=== PATIENT | female | born 1965 | race African-American/Black ===

== ENCOUNTER 2018-01-06 14:10 | Inpatient (IN) | payer BC, MEDICARE ==
[2018-01-06] MEDS ORDERED: ONDANSETRON HCL INJ/PF 4 MG/2 ML SDV IV ONE (14:49)
[2018-01-06] MEDS ORDERED: NORMAL SALINE 1000 ML 1,000 ML IV ONE (14:50)
--- NOTE | 2018-01-06 14:51 | ER Document Report ---
ED Medical Screen (RME) - General Chief Complaint: Nausea/Vomiting Stated Complaint: NOSE BLEED/VOMITING Time Seen by Provider: 01/06/18 14:46 Mode of Arrival: Ambulatory Information source: Patient Notes: Patient is a 52-year-old female who presents with chief complaint of weakness, nausea, vomiting and diarrhea for 2-3 days. Patient reports she did have an episode of nosebleeding but that resolved yesterday. Patient denies any fever or abdominal pain. Patient denies any urinary symptoms. Exam: Lung sounds clear to auscultation bilaterally. Tenderness to palpation to right lower quadrant, otherwise abdomen soft nontender. I have greeted and performed a rapid initial assessment of this patient. A comprehensive ED assessment and evaluation of the patient, analysis of test results and completion of the medical decision making process will be conducted by additional ED providers. Dictation of this chart was performed using voice recognition software; therefore, there may be some unintended grammatical errors. TRAVEL OUTSIDE OF THE [place] IN LAST 30 DAYS: No - Related Data Allergies/Adverse Reactions: promethazine [From Phenergan] Allergy (Verified 01/06/18 14:13) Past Medical History Renal/ Medical History: Denies: Hx Peritoneal Dialysis Past Surgical History: Reports: Hx Abdominal Surgery Physical Exam - Vital signs Vitals: Temp Pulse Resp BP Pulse Ox 97.5 F 100 16 129/81 H 100 01/06/18 14:39 01/06/18 14:39 01/06/18 14:39 01/06/18 14:39 01/06/18 14:39 Course - Vital Signs Vital signs: Temp Pulse Resp BP Pulse Ox 97.5 F 100 16 129/81 H 100 01/06/18 14:39 01/06/18 14:39 01/06/18 14:39 01/06/18 14:39 01/06/18 14:39 Doctor's Discharge - Discharge Referrals: CHARLES DOAN MD [Primary Care Provider] - Follow up as needed
[2018-01-06 16:41] LABS: HEMATOCRIT 35.9 % (36.0-47.0); HEMOGLOBIN 11.9 g/dL (12.0-15.5); MEAN CORPUSCULAR HEMOGLOBIN 25.8 pg (27.0-33.4); MEAN CORPUSCULAR HGB CONC 33.2 g/dL (32.0-36.0); MEAN CORPUSCULAR VOLUME 78 fl (80-97); PLATELET COUNT 116 10^3/uL (150-450); RED BLOOD COUNT 4.62 10^6/uL (3.72-5.28); RED CELL DISTRIBUTION WIDTH 16.4 % (11.5-14.0); WHITE BLOOD COUNT 22.8 10^3/uL (4.0-10.5)
[2018-01-06 16:42] LABS: APPEARANCE,URINE CLOUDY; BILIRUBIN,URINE SMALL (NEGATIVE); COLOR,URINE AMBER; GLUCOSE, URINE NEGATIVE (NEGATIVE); KETONES,URINE NEGATIVE (NEGATIVE); LEUKOCYTE ESTERASE,URINE NEGATIVE (NEGATIVE); NITRITE,URINE NEGATIVE (NEGATIVE); PROTEIN,URINE 100 mg/dL (NEGATIVE); URINE SPECIFIC GRAVITY 1.029
[2018-01-06 16:59] LABS: ABSOLUTE LYMPHOCYTES# (MANUAL) 2.5 10^3/uL (0.5-4.7); ABSOLUTE MONOCYTES # (MANUAL) 0.5 10^3/uL (0.1-1.4); ABSOLUTE NEUTROPHILS# (MANUAL) 19.8 10^3/uL (1.7-8.2); BAND NEUTROPHILS % (MANUAL) 5 % (3-5); BASOPHILS % (MANUAL) 0 % (0-2); EOSINOPHILS % (MANUAL) 0 % (0-6); LYMPHOCYTES % (MANUAL) 11 % (13-45); MONOCYTES % (MANUAL) 2 % (3-13); SEGMENTED NEUTROPHILS % (MAN) 82 % (42-78); TOTAL CELLS COUNTED 100
[2018-01-06 17:01] LABS: ANISOCYTOSIS 1+; HYPOCHROMASIA 1+; OVALOCYTES 1+; POIKILOCYTOSIS 2+; TEAR DROP CELLS SLIGHT
[2018-01-06 17:02] LABS: BURR CELLS 1+; PLATELET COMMENT ADEQUATE; TOXIC GRANULATION 1+; TOXIC VACUOLATION PRESENT
[2018-01-06 17:06] LABS: ALANINE AMINOTRANSFERASE 29 U/L (9-52); ALBUMIN 3.7 g/dL (3.5-5.0); ALKALINE PHOSPHATASE 297 U/L (38-126); ANION GAP 16 (5-19); ASPARTATE AMINO TRANSFERASE 36 U/L (14-36); BILIRUBIN,DIRECT 0.9 mg/dL (0.0-0.4); BILIRUBIN,TOTAL 0.9 mg/dL (0.2-1.3); BLOOD UREA NITROGEN 62 mg/dL (7-20); CALCIUM 9.1 mg/dL (8.4-10.2); CARBON DIOXIDE 17 mmol/L (22-30); CHLORIDE 107 mmol/L (98-107); GLUCOSE 90 mg/dL (75-110); LIPASE 1599.4 U/L (23-300); POTASSIUM 3.7 mmol/L (3.6-5.0); SODIUM 139.7 mmol/L (137-145); TOTAL PROTEIN 7.5 g/dL (6.3-8.2)
[2018-01-06] MEDS ORDERED: KETOROLAC TROMETHAMINE INJ/PF 30 MG/1 ML SDV IV ONE (19:54)
[2018-01-06] MEDS ORDERED: RINGERS SOLUTION,LACTATED 1,000 ML IV ONE (19:54)
--- NOTE | 2018-01-06 20:14 | ER Document Report ---
ED General - General Chief Complaint: Nausea/Vomiting Stated Complaint: NOSE BLEED/VOMITING Time Seen by Provider: 01/06/18 14:46 Mode of Arrival: Ambulatory Notes: Patient is a 52-year-old female with past medical history of hypertension, prior appendectomy, prior cholecystectomy who presents with 36 hours of upper abdominal pain, nausea and vomiting. She has not been able to tolerate oral intake secondary to her degree of nausea and vomiting. She denies a history of similar symptoms in the past. Nothing seemed to improve or worsen her symptoms. She does describe her upper abdominal pain as a dull, throbbing, constant pain. She has not had any diarrhea. No fever or constitutional symptoms. She denies alcohol use. No known sick contacts. TRAVEL OUTSIDE OF THE [place] IN LAST 30 DAYS: No - Related Data Allergies/Adverse Reactions: promethazine [From Phenergan] Allergy (Verified 01/06/18 14:13) Past Medical History - General Information source: Patient - Social History Smoking Status: Current Every Day Smoker Frequency of alcohol use: None Drug Abuse: None Lives with: Family Family History: Reviewed & Not Pertinent Patient has suicidal ideation: No Patient has homicidal ideation: No Renal/ Medical History: Denies: Hx Peritoneal Dialysis Past Surgical History: Reports: Hx Abdominal Surgery Review of Systems - Review of Systems Notes: Constitutional: Negative for fever. HENT: Negative for sore throat. Eyes: Negative for visual changes. Cardiovascular: Negative for chest pain. Respiratory: Negative for shortness of breath. Gastrointestinal: Positive for abdominal pain and vomiting Genitourinary: Negative for dysuria. Musculoskeletal: Negative for back pain. Skin: Negative for rash. Neurological: Negative for headaches, weakness or numbness. 10 point ROS negative except as marked above and in HPI. Physical Exam - Vital signs Vitals: Temp Pulse Resp BP Pulse Ox 97.5 F 100 16 129/81 H 100 01/06/18 14:39 01/06/18 14:39 01/06/18 14:39 01/06/18 14:39 01/06/18 14:39 Interpretation: Tachycardic Notes: PHYSICAL EXAMINATION: GENERAL: Appears moderately uncomfortable but in no acute distress HEAD: Atraumatic, normocephalic. EYES: Pupils equal round and reactive to light, extraocular movements intact, sclera anicteric, conjunctiva are normal. ENT: nares patent, oropharynx clear without exudates. Moderately dry mucous membranes. NECK: Normal range of motion, supple without lymphadenopathy LUNGS: Breath sounds clear to auscultation bilaterally and equal. No wheezes rales or rhonchi. HEART: Regular rate and rhythm without murmurs ABDOMEN: Soft, mild epigastric and right quadrant abdominal pain but no other localized areas of tenderness, normoactive bowel sounds. No guarding, no rebound. No masses appreciated. EXTREMITIES: Normal range of motion, no pitting or edema. No cyanosis. NEUROLOGICAL: No focal neurological deficits. Moves all extremities spontaneously and on command. PSYCH: Normal mood, normal affect. SKIN: Warm, Dry, normal turgor, no rashes or lesions noted. Course - Re-evaluation Re-evalutation: 01/06/18 20:13 Patient presents with nausea, vomiting, upper abdominal pain hours. She has some mild tenderness to her right upper quadrant and epigastrium on palpation. Laboratories are notable for a leukocytosis, elevated lipase, and acute kidney injury. This is consistent with an acute pancreatitis with associated prerenal azotemia from nausea and vomiting and difficulty tolerating oral intake. Will proceed with a right upper quadrant ultrasound to verify that this is not a gallstone induced pancreatitis. Patient has been started on IV fluids, pain control, antiemetics. She will require admission given her laboratory derangements 01/06/18 23:20 Right quadrant ultrasound actually shows that the patient has had a cholecystectomy although she denied this to me. It appears that she had choledocholithiasis and subsequently has had an ERCP with a common bile duct stent placement. Patient has not had any additional vomiting. I discussed with the hospitalist Dr. Myles for admission and she has accepted - Vital Signs Vital signs: Temp Pulse Resp BP Pulse Ox 98.5 F 72 24 H 121/76 99 01/06/18 23:28 01/06/18 23:28 01/07/18 02:00 01/06/18 23:28 01/07/18 02:00 - Laboratory Result Diagrams: 01/06/18 16:18 01/06/18 16:18 Laboratory results interpreted by me: 01/06/18 01/06/18 01/06/18 16:18 16:18 16:18 WBC 22.8 H Hgb 11.9 L Hct 35.9 L MCV 78 L MCH 25.8 L RDW 16.4 H Plt Count 116 L Seg Neuts % (Manual) 82 H Lymphocytes % (Manual) 11 L Monocytes % (Manual) 2 L Abs Neuts (Manual) 19.8 H Carbon Dioxide 17 L BUN 62 H Creatinine 1.68 H Est GFR ( Amer) 39 L Est GFR (Non-Af Amer) 32 L Direct Bilirubin 0.9 H Alkaline Phosphatase 297 H Lipase 1599.4 H Urine Protein 100 H Urine Blood MODERATE H Urine Bilirubin SMALL H Urine Urobilinogen 2.0 H - Diagnostic Test Radiology reviewed: Reports reviewed Discharge - Discharge Clinical Impression: Prerenal azotemia Acute pancreatitis Qualifiers: Pancreatitis type: unspecified pancreatitis type Acute pancreatitis complication: unspecified Qualified Code(s): K85.90 - Acute pancreatitis without necrosis or infection, unspecified Nausea and vomiting Qualifiers: Vomiting type: unspecified Vomiting Intractability: non-intractable Qualified Code(s): R11.2 - Nausea with vomiting, unspecified Condition: Fair Disposition: ADMITTED INPATIENT Admitting Provider: Hospitalist Unit Admitted: Medical Floor
--- NOTE | 2018-01-06 22:42 | RADIOLOGY REPORT (SQ) ---
EXAM DESCRIPTION: US ABDOMEN LIMITED COMPLETED DATE/TME: 01/06/2018 20:11 CLINICAL HISTORY: 52 years, Female, acute pancreatitis COMPARISON: EXAM DESCRIPTION: CLINICAL HISTORY: acute pancreatitis COMPARISON: None. FINDINGS: Sonography was performed of the right upper quadrant. Pancreatic duct is dilated at 8 mm. There is calcification at of the pancreas which is heterogeneous. Aorta is unremarkable. Flow in the main portal vein is in the expected direction. No sonographic Pina's sign. Bile duct is enlarged at 10 mm. There is a stent in the common duct. Right kidney measures 9.3 cm in length. Gallbladder is not seen. No other acute abnormality. IMPRESSION: Abnormal appearance of the pancreas, which is nonspecific. Inflammatory or neoplastic etiologies are possible. Dilated pancreatic duct. Dilated common duct containing a stent. TECHNIQUE: LIMITATIONS: None. FINDINGS: IMPRESSION: 2010 [employer]- All Rights Reserved
[2018-01-06] MEDS ORDERED: GLUCAGON,HUMAN RECOMB 1 MG INJ SUBCUT PRN (23:49)
[2018-01-06] MEDS ORDERED: DEXTROSE 50%-WATER 25 GM/50 ML DISP.SYRIN IV PRN ×2 (23:49)
[2018-01-06] MEDS ORDERED: PROMETHAZINE HCL INJ 25 MG/1 ML VIAL IV PRN (23:49)
[2018-01-06] MEDS ORDERED: DEXTROSE 40% GEL 15 GM TUBE PO PRN (23:49)
[2018-01-06] MEDS ORDERED: MAG HYDROX/AL HYDROX/SIMETH SUSP 30 ML UDCUP PO PRN (23:49)
[2018-01-06] MEDS ORDERED: OXYCODONE-ACETAMINOPHEN 5-325 MG TABLET PO PRN (23:49)
[2018-01-06] MEDS ORDERED: ACETAMINOPHEN 325 MG TABLET PO PRN (23:49)
[2018-01-07] MEDS ORDERED: MORPHINE SULFATE 10 MG/ML INJ IV PRN (00:01)
[2018-01-07] MEDS ORDERED: IMIPENEM/CILASTATIN SODIUM INJ 500 MG VIAL IV PRN (00:15)
[2018-01-07] MEDS ORDERED: METOCLOPRAMIDE HCL INJ/PF 10 MG/2 ML SDV IV PRN (00:19)
[2018-01-07] MEDS ORDERED: PANTOPRAZOLE SODIUM 40 MG VIAL IV ONE (00:20)
[2018-01-07] MEDS ORDERED: IMIPENEM/CILASTATIN SODIUM 500 MG in NORMAL SALINE 100 ML IV ONE (00:30)
[2018-01-07 00:49] LABS: URINE AMPHETAMINES SCREEN NEGATIVE; URINE BARBITURATES SCREEN NEGATIVE; URINE BENZODIAZEPINES SCREEN NEGATIVE; URINE COCAINE SCREEN NEGATIVE; URINE MARIJUANA (THC) SCREEN NEGATIVE; URINE METHADONE SCREEN NEGATIVE; URINE PHENCYCLIDINE SCREEN NEGATIVE
[2018-01-07 01:14] LABS: CHOLESTEROL 158.33 mg/dL (0-200)
--- NOTE | 2018-01-07 01:19 | RADIOLOGY REPORT (SQ) ---
EXAM DESCRIPTION: CT ABDOMEN PELVIS WITHOUT IV CONTRAST COMPLETED DATE/TME: 01/06/2018 00:00 CLINICAL HISTORY: acute pancreatitis COMPARISON: None Available. TECHNIQUE: CT of the abdomen and pelvis without IV contrast. Evaluation of the solid organs and vasculature is suboptimal due to lack of IV contrast. DLP: 227.93 mGy-cm FINDINGS: Lung Bases: The visualized lung bases are clear. Bones: No destructive bone lesions identified. Abdomen: Liver: Intrabiliary air identified. No other abnormalities of the liver identified. Common bile duct stent visualized. Gallbladder: Gallbladder not definitely identified. Spleen, Pancreas, and Adrenal Glands: The spleen and adrenal glands are unremarkable. Dilation of the pancreatic duct. Minimal peripancreatic inflammatory change. No well-circumscribed peripancreatic fluid collection. Evaluation for pancreatic necrosis is suboptimal due to lack of contrast. Calcifications involving the head of the pancreas. Kidneys: Punctate nonobstructing inferior pole right renal calculus. No hydronephrosis. No obstructing renal calculi. Vasculature: The aorta and IVC have normal caliber and position. Stomach: Postoperative changes in the stomach. Other: No free intraperitoneal air. Small amount of free fluid. Pelvis: Bladder: Urinary bladder is unremarkable. Bowel: No dilated loops of large or small bowel. Appendix: The appendix is not definitely identified. Pelvis: No large adnexal masses. IMPRESSION: 1. Dilation of the main pancreatic duct with pancreatic calcifications. There is minimal peripancreatic inflammatory change. These findings could be seen with acute on chronic pancreatitis. 2. Common bile duct stent with intrabiliary air identified. 3. Gallbladder is identified. 4. Nonobstructing right nephrolithiasis. This exam was performed according to our departmental dose-optimization program, which includes automated exposure control, adjustment of the mA and/or kV according to patient size and/or use of iterative reconstruction technique.
[2018-01-07 01:24] LABS: ALCOHOL < 10 mg/dL (NONE DETECTED); TRIGLYCERIDES 626 mg/dL (<150)
[2018-01-07 01:25] LABS: DIRECT LDL < 30 mg/dL (<100)
[2018-01-07] MEDS: NORMAL SALINE 1000 ML 1,000 ML IV PRN ×2 (02:21→09:43)
--- NOTE | 2018-01-07 04:17 | PDOC H&P ---
History of Present Illness Admission Date/PCP: 01/06/18 23:46 Manolo SRINIVASAN Patient complains of: Nausea and vomiting History of Present Illness: JESSY VAIL is a 52 year old female who comes to the emergency department complaining of persistent nausea and vomiting for 1 day, associated with lower back pain, dull in nature, 7/10 intensity, she denies any abdominal pain, fever , chills, shortness of breath, chest pain, diarrhea, cough, urinary symptoms, wheezing. The patient has been feeling very weak and has decreased her fluid intake and p.o. intake in general. 2 nights ago she had shaking chills. Patient tells me that she has history of ulcer she does not know was a stomach or duodenum but something went wrong with her first surgery and she had a second surgery where she had a partial small bowel resection and I stent had to be placed in her bile duct, she does not know exactly the diagnosis or what happened during surgery. Abnormal laboratories in the emergency department with white blood cells 20 2.8K with left shift, acute renal failure, lipase 1599. Right upper quadrant ultrasound shows dilated pancreatic duct, and no new or old. Past Medical History GI Medical History: Reports: Other - Ulcer, unknown if duodenal or gastric Past Surgical History Past Surgical History: Exploratory laparotomy with apparently partial small bowel resection and bile duct stent in place Past Surgical History: Reports: Other Social History Lives with: Family Smoking Status: Never Smoker Frequency of Alcohol Use: None Hx Recreational Drug Use: No Hx Prescription Drug Abuse: No Past Social History Note: Lives with her parents Family History Family History: Reviewed & Not Pertinent Family History: Mother 71 years old with hypertension, father 71 years old with pacemaker in place and COPD Parental Family History Reviewed: Yes - as Above Children Family History Reviewed: NA Sibling(s) Family History Reviewed.: NA Medication/Allergy Allergies/Adverse Reactions: promethazine [From Phenergan] Allergy (Verified 01/06/18 14:13) Review of Systems Review of Systems: As outlined in the HPI, all others negative Physical Exam Vital Signs: Temp Pulse Resp BP Pulse Ox 98.5 F 72 14 121/76 99 01/06/18 23:28 01/06/18 23:28 01/07/18 03:00 01/06/18 23:28 01/07/18 03:00 Intake & Output 01/05/18 01/06/18 01/07/18 06:59 06:59 06:59 Intake Total 100 Balance 100 Additional comments: General appearance: Well-developed, well-nourished, alert and cooperative, and appears to be in no acute distress Head: Normocephalic Eyes: PEERL, EOMI, vision is grossly intact. Ears: External auditory canal and tympanic membranes clear, hearing grossly intact. Nose: No nasal discharge. Throat: Oral cavity and pharynx normal. No inflammation, swelling, exudate or lesions. Neck: Neck supple, nontender without lymphadenopathy, masses or thyromegaly. Cardiac: Normal S1 and S2. No S3, S4 or murmurs. Rhythm is regular. There is no peripheral edema, cyanosis or pallor. Extremities are warm and well perfused. Capillary refill is less than 2 seconds. No carotid bruits. Lungs: Clear to auscultation and percussion without rales, rhonchi, wheezing or diminished breath sounds. Not using accessory muscles. Abdomen: Positive bowel sounds. Soft. Nondistended, nontender. No guarding or rebound. No masses. No hepatosplenomegaly Extremities: No significant deformity or joint abnormality. No edema. Peripheral pulses intact. No varicosities. Neurological: Cranial nerves II through XII grossly intact. Strength and sensation symmetric and intact throughout. Reflexes 2+ throughout. Skin: Skin normal color, texture and turgor with no lesions or eruptions, warm and dry. Psychiatric: The mental examination revealed the patient was oriented to person , place, and time. The patient was able to demonstrate good judgment on recent , without hallucinations, abnormal affect or abnormal behaviors. Results Laboratory Results: 01/07/18 00:35 Triglycerides 626 H Cholesterol 158.33 LDL Cholesterol Direct < 30 VLDL Cholesterol UNABLE TO CALCULATE HDL Cholesterol 19 L 01/06/18 01/06/18 16:18 16:18 Sodium 139.7 Potassium 3.7 Chloride 107 Carbon Dioxide 17 L Anion Gap 16 BUN 62 H Creatinine 1.68 H Est GFR ( Amer) 39 L Est GFR (Non-Af Amer) 32 L Glucose 90 Calcium 9.1 Total Bilirubin 0.9 Direct Bilirubin 0.9 H AST 36 ALT 29 Alkaline Phosphatase 297 H Total Protein 7.5 Albumin 3.7 Lipase 1599.4 H Urine Color ERIKA Urine Appearance CLOUDY Urine pH 5.0 Ur Specific [place] 1.029 Urine Protein 100 H Urine Glucose (UA) NEGATIVE Urine Ketones NEGATIVE Urine Blood MODERATE H Urine Nitrite NEGATIVE Urine Bilirubin SMALL H Urine Urobilinogen 2.0 H Ur Leukocyte Esterase NEGATIVE Urine WBC (Auto) 4 Urine RBC (Auto) 66 Squamous Epi Cells Auto 2 Urine Mucus (Auto) RARE Urine Ascorbic Acid NEGATIVE Impressions: Abdomen/Pelvis CT 01/06/18 00:00 IMPRESSION: 1. Dilation of the main pancreatic duct with pancreatic calcifications. There is minimal peripancreatic inflammatory change. These findings could be seen with acute on chronic pancreatitis. 2. Common bile duct stent with intrabiliary air identified. 3. Gallbladder is identified. 4. Nonobstructing right nephrolithiasis. This exam was performed according to our departmental dose-optimization program, which includes automated exposure control, adjustment of the mA and/or kV according to patient size and/or use of iterative reconstruction technique. Abdomen Ultrasound 01/06/18 20:11 IMPRESSION: Abnormal appearance of the pancreas, which is nonspecific. Inflammatory or neoplastic etiologies are possible. Dilated pancreatic duct. Dilated common duct containing a stent. TECHNIQUE: LIMITATIONS: None. FINDINGS: IMPRESSION: 2010 [employer]- All Rights Reserved Assessment & Plan - Diagnosis (1) Acute pancreatitis Qualifiers: Pancreatitis type: unspecified pancreatitis type Acute pancreatitis complication: unspecified Qualified Code(s): K85.90 - Acute pancreatitis without necrosis or infection, unspecified Is this a current diagnosis for this admission?: Yes Plan: Lipase 1599. We will keep the patient n.p.o. normal saline running at 1 50 cc/ h. IV antiemetics and pain medication. I am adding to prior labs serum alcohol levels, tightly 70 days. Requesting urinalysis and urine drug screen. Requested CT of the abdomen, unfortunately without contrast as the patient has acute renal failure. Ultrasound failed to show gallbladder. Due to the severe leukocytosis I decided to a started the patient on IV imipenem. Will repeat lipase in the morning. (2) Acute renal failure Qualifiers: Acute renal failure type: unspecified Qualified Code(s): N17.9 - Acute kidney failure, unspecified Is this a current diagnosis for this admission?: Yes Plan: I will assume that the patient has normal renal function, we do not have previous labs. This is likely prerenal secondary to dehydration secondary to poor oral intake and persistent nausea and vomiting. Patient is receiving IV fluids and will reassess renal panel in the morning. Do not feel further workup is warranted. Avoid nephrotoxic drugs. (3) Metabolic acidosis Is this a current diagnosis for this admission?: Yes Plan: Likely multifactorial, will reassess this in the morning (4) Alkaline phosphatase elevation Is this a current diagnosis for this admission?: Yes Plan: Alkaline phosphatase 297, I do not have prior to compare to. We will repeat liver function panel in the morning. Patient has had bile duct stent that could be obstructed, laboratory seems to be worse than what really the patient clinically looked. If not improvement, we will probably have to contact GI in a different facility. - Time Time Spent: 30 to 50 Minutes - Inpatient Certification Based on my medical assessment, after consideration of the patient's comorbidities, presenting symptoms, or acuity I expect that the services needed warrant INPATIENT care.: Yes I certify that my determination is in accordance with my understanding of Medicare's requirements for reasonable and necessary INPATIENT services [42 CFR 412.3e].: Yes Medical Necessity: Risk of Diagnosis Which Will Require Inpatient Eval/Care/ Monitoring
[2018-01-07] MEDS: IMIPENEM/CILASTATIN SODIUM 500 MG in NORMAL SALINE 100 ML IV SCH ×3 (06:12→19:37)
[2018-01-07] MEDS: HEPARIN SOD (PORCINE) 5,000 UNIT/ML 1 ML SYRINGE SUBCUT SCH ×3 (06:14→21:38)
[2018-01-07 06:23] LABS: HEMATOCRIT 35.5 % (36.0-47.0); HEMOGLOBIN 11.7 g/dL (12.0-15.5); MEAN CORPUSCULAR HEMOGLOBIN 25.9 pg (27.0-33.4); MEAN CORPUSCULAR HGB CONC 32.9 g/dL (32.0-36.0); MEAN CORPUSCULAR VOLUME 79 fl (80-97); PLATELET COUNT 122 10^3/uL (150-450); RED BLOOD COUNT 4.51 10^6/uL (3.72-5.28); RED CELL DISTRIBUTION WIDTH 16.4 % (11.5-14.0); WHITE BLOOD COUNT 9.7 10^3/uL (4.0-10.5)
[2018-01-07 06:41] LABS: ABSOLUTE LYMPHOCYTES# (MANUAL) 0.9 10^3/uL (0.5-4.7); ABSOLUTE MONOCYTES # (MANUAL) 0.1 10^3/uL (0.1-1.4); ABSOLUTE NEUTROPHILS# (MANUAL) 8.6 10^3/uL (1.7-8.2); BAND NEUTROPHILS % (MANUAL) 2 % (3-5); BASOPHILS % (MANUAL) 0 % (0-2); EOSINOPHILS % (MANUAL) 1 % (0-6); LYMPHOCYTES % (MANUAL) 9 % (13-45); MONOCYTES % (MANUAL) 1 % (3-13); SEGMENTED NEUTROPHILS % (MAN) 87 % (42-78); TOTAL CELLS COUNTED 100
[2018-01-07 06:42] LABS: ANISOCYTOSIS 1+; BURR CELLS 2+; HELMET CELLS SLIGHT; PLATELET COMMENT ADEQUATE; PLATELET LARGE PRESENT; POIKILOCYTOSIS 2+; SCHISTOCYTES 1+; TARGET CELLS SLIGHT; TOXIC GRANULATION 1+
[2018-01-07 08:03] LABS: ALANINE AMINOTRANSFERASE 23 U/L (9-52); ALBUMIN 2.9 g/dL (3.5-5.0); ALKALINE PHOSPHATASE 202 U/L (38-126); ANION GAP 10 (5-19); ASPARTATE AMINO TRANSFERASE 27 U/L (14-36); BILIRUBIN,DIRECT 0.8 mg/dL (0.0-0.4); BILIRUBIN,TOTAL 0.8 mg/dL (0.2-1.3); BLOOD UREA NITROGEN 51 mg/dL (7-20); CALCIUM 8.6 mg/dL (8.4-10.2); CARBON DIOXIDE 18 mmol/L (22-30); CHLORIDE 113 mmol/L (98-107); GLUCOSE 77 mg/dL (75-110); PHOSPHORUS 3.2 mg/dL (2.5-4.5); POTASSIUM 3.7 mmol/L (3.6-5.0); SODIUM 141.2 mmol/L (137-145); TOTAL PROTEIN 6.3 g/dL (6.3-8.2)
[2018-01-07 08:17] LABS: LIPASE 1995.6 U/L (23-300)
--- NOTE | 2018-01-07 09:23 | PDOC PROGRESS REPORT ---
Subjective Progress Note for:: 01/07/18 Subjective:: Patient is feeling significantly better this morning. Her abdominal limbs are improved. She is not really having abdominal pain. Nausea is improved. No emesis overnight. Slept well. No chest pain or difficulty breathing. No urinary difficulty. She has not had a bowel movement. Reason For Visit: ACUTE PANCREATITIS Physical Exam Vital Signs: Temp Pulse Resp BP Pulse Ox 98.5 F 72 21 H 132/98 H 96 01/06/18 23:28 01/06/18 23:28 01/07/18 07:01 01/07/18 07:01 01/07/18 07:01 Intake & Output 01/06/18 01/07/18 01/08/18 06:59 06:59 06:59 Intake Total 100 100 Balance 100 100 General appearance: PRESENT: no acute distress, cooperative, thin Head exam: PRESENT: atraumatic, normocephalic Eye exam: PRESENT: EOMI. ABSENT: conjunctival injection, scleral icterus Ear exam: ABSENT: bleeding Mouth exam: PRESENT: moist Respiratory exam: PRESENT: clear to auscultation les, unlabored. ABSENT: rales , rhonchi, wheezes Cardiovascular exam: PRESENT: RRR. ABSENT: systolic murmur Pulses: PRESENT: normal radial pulses, normal dorsalis pedis pul GI/Abdominal exam: PRESENT: diminished bowel sounds, soft, tenderness. ABSENT: distended, firm, guarding Rectal exam: PRESENT: deferred Extremities exam: ABSENT: pedal edema Neurological exam: PRESENT: alert, awake, oriented to person, oriented to place , oriented to situation, CN II-XII grossly intact Psychiatric exam: PRESENT: appropriate affect. ABSENT: anxious Skin exam: PRESENT: dry, intact, warm Results Laboratory Results: 01/07/18 06:10 01/07/18 06:10 01/07/18 01/07/18 01/07/18 00:35 06:10 06:10 WBC 9.7 RBC 4.51 Hgb 11.7 L Hct 35.5 L MCV 79 L MCH 25.9 L MCHC 32.9 RDW 16.4 H Plt Count 122 L Seg Neutrophils % Not Reportable Lymphocytes % Not Reportable Monocytes % Not Reportable Eosinophils % Not Reportable Basophils % Not Reportable Absolute Neutrophils Not Reportable Absolute Lymphocytes Not Reportable Absolute Monocytes Not Reportable Absolute Eosinophils Not Reportable Absolute Basophils Not Reportable Sodium 141.2 Potassium 3.7 Chloride 113 H Carbon Dioxide 18 L Anion Gap 10 BUN 51 H Creatinine 1.26 H Est GFR ( Amer) 54 L Est GFR (Non-Af Amer) 45 L Glucose 77 Calcium 8.6 Phosphorus 3.2 Magnesium 2.1 Total Bilirubin 0.8 AST 27 ALT 23 Alkaline Phosphatase 202 H Total Protein 6.3 Albumin 2.9 L Triglycerides 626 H Cholesterol 158.33 LDL Cholesterol Direct < 30 VLDL Cholesterol UNABLE TO CALCULATE HDL Cholesterol 19 L Lipase 1995.6 H Impressions: Abdomen/Pelvis CT 01/06/18 00:00 IMPRESSION: 1. Dilation of the main pancreatic duct with pancreatic calcifications. There is minimal peripancreatic inflammatory change. These findings could be seen with acute on chronic pancreatitis. 2. Common bile duct stent with intrabiliary air identified. 3. Gallbladder is identified. 4. Nonobstructing right nephrolithiasis. This exam was performed according to our departmental dose-optimization program, which includes automated exposure control, adjustment of the mA and/or kV according to patient size and/or use of iterative reconstruction technique. Abdomen Ultrasound 01/06/18 20:11 IMPRESSION: Abnormal appearance of the pancreas, which is nonspecific. Inflammatory or neoplastic etiologies are possible. Dilated pancreatic duct. Dilated common duct containing a stent. TECHNIQUE: LIMITATIONS: None. FINDINGS: IMPRESSION: 2010 [employer] All Rights Reserved Assessment & Plan - Diagnosis (1) Acute pancreatitis Qualifiers: Pancreatitis type: unspecified pancreatitis type Acute pancreatitis complication: unspecified Qualified Code(s): K85.90 - Acute pancreatitis without necrosis or infection, unspecified Is this a current diagnosis for this admission?: Yes Plan: Patient does not know if she has had pancreatitis in the past. She did review her GI history with me as she did with admitting hospitalist. She states that she still has a "bile duct stent" in place. She recently saw a director of cardiology for a checkup and she said there were no problems at that time. I described to patient the tenants of acute pancreatitis treatment including IV fluids pain control and n.p.o. status. She has improved but does continue to have some abdominal pain. Will continue with ice chips IV fluids and pain control for now and reassess later today. We will continue with imipenem as well, as her white count improved dramatically. (2) Acute renal failure Qualifiers: Acute renal failure type: unspecified Qualified Code(s): N17.9 - Acute kidney failure, unspecified Is this a current diagnosis for this admission?: Yes Plan: Improving with IV fluids. Continue IV fluids. (3) Alkaline phosphatase elevation Is this a current diagnosis for this admission?: Yes Plan: Improving. Continue to monitor. Gallbladder appearance on CT scan was normal. She has no right upper quadrant tenderness to palpation. (4) Nausea and vomiting Qualifiers: Vomiting type: unspecified Vomiting Intractability: non-intractable Qualified Code(s): R11.2 - Nausea with vomiting, unspecified Is this a current diagnosis for this admission?: Yes Plan: Improved. Will reduce Phenergan dose due to somnolence. - Time Time Spent with patient: 15-24 minutes Medications reviewed and adjusted accordingly: Yes Anticipated discharge: Home - Inpatient Certification Based on my medical assessment, after consideration of the patient's comorbidities, presenting symptoms, or acuity I expect that the services needed warrant INPATIENT care.: Yes I certify that my determination is in accordance with my understanding of Medicare's requirements for reasonable and necessary INPATIENT services [42 CFR 412.3e].: Yes Medical Necessity: Need For IV Fluids, Need for IV Antibiotics
[2018-01-07] MEDS: PANTOPRAZOLE SODIUM 40 MG VIAL IV SCH (09:44)
[2018-01-07 20:29] LABS: CHOLESTEROL 201.19 mg/dL (0-200); LIPASE 900.8 U/L (23-300)
[2018-01-07 20:45] LABS: DIRECT LDL < 30 mg/dL (<100); TRIGLYCERIDES 791 mg/dL (<150)
[2018-01-08] MEDS: IMIPENEM/CILASTATIN SODIUM 500 MG in NORMAL SALINE 100 ML IV SCH ×5 (01:12→23:18)
[2018-01-08] MEDS: NORMAL SALINE 1000 ML 1,000 ML IV PRN ×2 (01:12→13:40)
[2018-01-08] MEDS: HEPARIN SOD (PORCINE) 5,000 UNIT/ML 1 ML SYRINGE SUBCUT SCH ×3 (06:20→21:22)
[2018-01-08] MEDS: PANTOPRAZOLE SODIUM 40 MG VIAL IV SCH (11:19)
[2018-01-08 12:04] LABS: HEMATOCRIT 33.7 % (36.0-47.0); MEAN CORPUSCULAR HEMOGLOBIN 25.6 pg (27.0-33.4); MEAN CORPUSCULAR HGB CONC 32.5 g/dL (32.0-36.0); MEAN CORPUSCULAR VOLUME 79 fl (80-97); PLATELET COUNT 122 10^3/uL (150-450); RED BLOOD COUNT 4.28 10^6/uL (3.72-5.28); RED CELL DISTRIBUTION WIDTH 16.9 % (11.5-14.0)
[2018-01-08 12:21] LABS: ALANINE AMINOTRANSFERASE 24 U/L (9-52); ALBUMIN 2.7 g/dL (3.5-5.0); ALKALINE PHOSPHATASE 160 U/L (38-126); ASPARTATE AMINO TRANSFERASE 53 U/L (14-36); BILIRUBIN,DIRECT 0.5 mg/dL (0.0-0.4); BILIRUBIN,TOTAL 0.5 mg/dL (0.2-1.3); TOTAL PROTEIN 5.7 g/dL (6.3-8.2)
[2018-01-08 12:22] LABS: ANION GAP 15 (5-19); BLOOD UREA NITROGEN 38 mg/dL (7-20); CALCIUM 8.3 mg/dL (8.4-10.2); CARBON DIOXIDE 11 mmol/L (22-30); CHLORIDE 115 mmol/L (98-107); POTASSIUM 4.1 mmol/L (3.6-5.0); SODIUM 141.2 mmol/L (137-145)
[2018-01-08 12:35] LABS: GLUCOSE 38 mg/dL (75-110)
[2018-01-08] MEDS: DEXTROSE 40% GEL 15 GM TUBE PO PRN ×2 (12:57→22:29)
[2018-01-08] MEDS ORDERED: RINGERS SOLUTION,LACTATED 1,000 ML IV PRN (18:47)
[2018-01-08] MEDS: DEXTROSE 5%-WATER 1000 ML 1,000 ML IV PRN (23:18)
[2018-01-09] MEDS: HEPARIN SOD (PORCINE) 5,000 UNIT/ML 1 ML SYRINGE SUBCUT SCH ×3 (05:48→22:17)
[2018-01-09] MEDS: IMIPENEM/CILASTATIN SODIUM 500 MG in NORMAL SALINE 100 ML IV SCH ×4 (05:48→23:33)
--- NOTE | 2018-01-09 08:14 | Progress Note ---
Provider Note Provider Note: patient has CBD stent likely placed for choledocholithiasis, and previous obstruction, previous procedure needs to be obtained. now has pancreatitis ? acute vs resolving LFT's slightly elevated patient may need MRCP or please consult Dr Fulton since stents are usually left in place and then subsequently removed Do not perfrom ERCP's and therefore consult with Dr Fulton may be more appropriate
[2018-01-09] MEDS: PANTOPRAZOLE SODIUM 40 MG VIAL IV SCH (09:10)
[2018-01-09 10:56] LABS: HEMATOCRIT 31.4 % (36.0-47.0); HEMOGLOBIN 10.4 g/dL (12.0-15.5); MEAN CORPUSCULAR HEMOGLOBIN 25.3 pg (27.0-33.4); MEAN CORPUSCULAR HGB CONC 33.1 g/dL (32.0-36.0); MEAN CORPUSCULAR VOLUME 77 fl (80-97); PLATELET COUNT 122 10^3/uL (150-450); RED BLOOD COUNT 4.09 10^6/uL (3.72-5.28); RED CELL DISTRIBUTION WIDTH 16.1 % (11.5-14.0); WHITE BLOOD COUNT 7.8 10^3/uL (4.0-10.5)
[2018-01-09 11:26] LABS: ALANINE AMINOTRANSFERASE 42 U/L (9-52); ALBUMIN 2.3 g/dL (3.5-5.0); ALKALINE PHOSPHATASE 132 U/L (38-126); ANION GAP 10 (5-19); ASPARTATE AMINO TRANSFERASE 176 U/L (14-36); BILIRUBIN,DIRECT 0.3 mg/dL (0.0-0.4); BILIRUBIN,TOTAL 0.4 mg/dL (0.2-1.3); BLOOD UREA NITROGEN 22 mg/dL (7-20); CALCIUM 8.1 mg/dL (8.4-10.2); CARBON DIOXIDE 14 mmol/L (22-30); CHLORIDE 116 mmol/L (98-107); GLUCOSE 125 mg/dL (75-110); POTASSIUM 3.7 mmol/L (3.6-5.0); SODIUM 139.6 mmol/L (137-145); TOTAL PROTEIN 5.2 g/dL (6.3-8.2)
[2018-01-09] MEDS ORDERED: RINGERS SOLUTION,LACTATED 1,000 ML IV ONE (16:02)
--- NOTE | 2018-01-09 16:20 | PDOC PROGRESS REPORT ---
Subjective Progress Note for:: 01/09/18 Subjective:: Patient is feeling pretty well today, no abdominal pain, has new onset diarrhea , NO fever or chills. No chest pain or difficulty breathing. Reason For Visit: ACUTE PANCREATITIS Physical Exam Vital Signs: Temp Pulse Resp BP Pulse Ox 98.4 F 80 16 138/91 H 97 01/09/18 11:36 01/09/18 11:36 01/09/18 11:36 01/09/18 11:36 01/09/18 11:36 Intake & Output 01/08/18 01/09/18 01/10/18 06:59 06:59 06:59 Intake Total 2760 3162 603 Balance 2760 3162 603 Weight 38.1 kg 39.2 kg General appearance: PRESENT: no acute distress, thin Head exam: PRESENT: atraumatic, normocephalic Eye exam: ABSENT: conjunctival injection, scleral icterus Mouth exam: PRESENT: moist, tongue midline Respiratory exam: PRESENT: clear to auscultation les, unlabored. ABSENT: rales , rhonchi, wheezes Cardiovascular exam: PRESENT: RRR. ABSENT: systolic murmur Pulses: PRESENT: normal radial pulses GI/Abdominal exam: PRESENT: normal bowel sounds, soft. ABSENT: distended, tenderness Gentrourinary exam: ABSENT: indwelling catheter Extremities exam: ABSENT: pedal edema Musculoskeletal exam: PRESENT: ambulatory. ABSENT: deformity Neurological exam: PRESENT: alert, awake, oriented to person, oriented to place , oriented to situation, CN II-XII grossly intact Psychiatric exam: PRESENT: appropriate affect. ABSENT: anxious Skin exam: PRESENT: dry, intact, warm Results Laboratory Results: 01/09/18 10:45 01/09/18 10:45 01/08/18 01/08/18 01/08/18 18:00 18:00 18:00 WBC RBC Hgb Hct MCV MCH MCHC RDW Plt Count Sodium Potassium Chloride Carbon Dioxide Anion Gap BUN Creatinine Est GFR ( Amer) Est GFR (Non-Af Amer) Glucose Lactic Acid Cancelled 3.0 H Calcium Ionized Calcium Lara 1.11 L Total Bilirubin AST ALT Alkaline Phosphatase Total Protein Albumin 01/08/18 01/09/18 01/09/18 22:45 10:45 10:45 WBC 7.8 RBC 4.09 Hgb 10.4 L Hct 31.4 L MCV 77 L MCH 25.3 L MCHC 33.1 RDW 16.1 H Plt Count 122 L Sodium 139.6 Potassium 3.7 Chloride 116 H Carbon Dioxide 14 L Anion Gap 10 BUN 22 H Creatinine 0.83 Est GFR ( Amer) > 60 Est GFR (Non-Af Amer) > 60 Glucose 125 H Lactic Acid 2.0 Calcium 8.1 L Ionized Calcium Lara Total Bilirubin 0.4 AST 176 H ALT 42 Alkaline Phosphatase 132 H Total Protein 5.2 L Albumin 2.3 L 01/09/18 01/09/18 01/09/18 10:45 10:45 15:04 WBC RBC Hgb Hct MCV MCH MCHC RDW Plt Count Sodium Potassium Chloride Carbon Dioxide Anion Gap BUN Creatinine Est GFR ( Amer) Est GFR (Non-Af Amer) Glucose Lactic Acid Cancelled 2.4 H 2.8 H Calcium Ionized Calcium Lara Total Bilirubin AST ALT Alkaline Phosphatase Total Protein Albumin Impressions: Abdomen/Pelvis CT 01/06/18 00:00 IMPRESSION: 1. Dilation of the main pancreatic duct with pancreatic calcifications. There is minimal peripancreatic inflammatory change. These findings could be seen with acute on chronic pancreatitis. 2. Common bile duct stent with intrabiliary air identified. 3. Gallbladder is identified. 4. Nonobstructing right nephrolithiasis. This exam was performed according to our departmental dose-optimization program, which includes automated exposure control, adjustment of the mA and/or kV according to patient size and/or use of iterative reconstruction technique. Abdomen Ultrasound 01/06/18 20:11 IMPRESSION: Abnormal appearance of the pancreas, which is nonspecific. Inflammatory or neoplastic etiologies are possible. Dilated pancreatic duct. Dilated common duct containing a stent. TECHNIQUE: LIMITATIONS: None. FINDINGS: IMPRESSION: 2010 [employer]- All Rights Reserved Assessment & Plan - Diagnosis (1) Bacteremia Is this a current diagnosis for this admission?: Yes Plan: Gram-negative rods and one set of blood cultures. Blood cultures will be repeated. In the meantime patient is on imipenem. Urine does not appear infected. Etiology not yet clear. Dr. Fulton has been consulted to evaluate biliary stent. Dynamically stable. She does have an elevated lactic acid level and she is being administered IV fluids, lactic acid level will be followed. (2) Acute pancreatitis Qualifiers: Pancreatitis type: unspecified pancreatitis type Acute pancreatitis complication: unspecified Qualified Code(s): K85.90 - Acute pancreatitis without necrosis or infection, unspecified Is this a current diagnosis for this admission?: Yes Plan: This patient was admitted with abdominal discomfort and had an elevated lipase. On imaging she has pancreatic head calcifications. Unclear whether she has an acute pancreatitis. At this point she is eating without abdominal pain. She is still being fluid hydrated secondary to lactic acid level. She is on imipenem for the gram-negative rods but unclear whether this is an acute or chronic pancreatitis, likely chronic. Of note she is not an alcohol user and never has been. She does have an elevated triglyceride level though not greater than 1000. She is hemodynamically stable. (3) Acute renal failure Qualifiers: Acute renal failure type: unspecified Qualified Code(s): N17.9 - Acute kidney failure, unspecified Is this a current diagnosis for this admission?: Yes Plan: Significantly improved with fluid hydration. Anion resolved and BUN close to normal. We will continue to fluid hydrate. No evidence of urinary tract infection or obstruction. (4) Alkaline phosphatase elevation Is this a current diagnosis for this admission?: Yes (5) Nausea and vomiting Qualifiers: Vomiting type: unspecified Vomiting Intractability: non-intractable Qualified Code(s): R11.2 - Nausea with vomiting, unspecified Is this a current diagnosis for this admission?: Yes Plan: This is resolved. Patient now has some diarrhea which could be related to the chronic pancreatitis. Will check C. difficile as she has been in the hospital for several days. (6) Hypoglycemia Is this a current diagnosis for this admission?: Yes Plan: Resolved once patient started to eat. We will continue to monitor CBGs. - Time Time Spent with patient: 25-34 minutes Medications reviewed and adjusted accordingly: Yes - Inpatient Certification Based on my medical assessment, after consideration of the patient's comorbidities, presenting symptoms, or acuity I expect that the services needed warrant INPATIENT care.: Yes I certify that my determination is in accordance with my understanding of Medicare's requirements for reasonable and necessary INPATIENT services [42 CFR 412.3e].: Yes Medical Necessity: Need Close Monitoring Due to Risk of Patient Decompensation, Need for IV Antibiotics, Risk of Complication if Not Cared For in Hospital
--- NOTE | 2018-01-09 18:51 | PDOC CONSULTATION ---
Consultation Consult Date: 01/09/18 History of Present Illness Admission Date/PCP: 01/06/18 23:46 History of Present Illness: JESSY VAIL is a 52 year old femalePatient who was admitted on 01/06/2018 with nausea, vomiting, and back pain. She had chills 2 days before being admitted. On admission her white count was 20 with a left shift on her lipase was elevated at 1600. She had an abdominal ultrasound that showed calcification of the pancreas with a dilated CBD of 10 mm and a pancreatic duct of 8 mm. There was a biliary stent in place. She had similar findings on the CAT scan with minimal peripancreatic inflammatory changes. According to the patient she had a complicated abdominal surgery about 5 years ago and the biliary stent was placed at that time. This was all done at [facility]. On admission her bilirubin was normal at 0.9 but her direct bilirubin was elevated with an alkaline phosphatase of 297. She denies abdominal pain Past Medical History GI Medical History: Reports: Other - Ulcer, unknown if duodenal or gastric Past Surgical History Past Surgical History: Reports: Other Social History Lives with: Family Smoking Status: Never Smoker Frequency of Alcohol Use: None Hx Recreational Drug Use: No Hx Prescription Drug Abuse: No Family History Family History: Reviewed & Not Pertinent Parental Family History Reviewed: No Children Family History Reviewed: NA Sibling(s) Family History Reviewed.: NA Medication/Allergy Home Medications: Cetirizine HCl [Zyrtec 10 mg Tablet] 10 mg PO DAILY 01/07/18 Esomeprazole Magnesium [Nexium] 40 mg PO DAILY 01/07/18 Ferrous Sulfate [Feosol 325 mg Tablet] 325 mg PO TID 01/07/18 Allergies/Adverse Reactions: promethazine [From Phenergan] Allergy (Verified 01/06/18 14:13) Review of Systems All systems: reviewed and no additional remarkable complaints except as stated Physical Exam Vital Signs: Temp Pulse Resp BP Pulse Ox 97.4 F 84 16 130/87 H 96 01/09/18 15:05 01/09/18 15:05 01/09/18 15:05 01/09/18 15:05 01/09/18 15:05 Intake & Output 01/08/18 01/09/18 01/10/18 06:59 06:59 06:59 Intake Total 9040 3162 603 Balance 2760 3162 603 Weight 38.1 kg 39.2 kg Exam: General: Patient is alert and very lean. HEENT: There is no pallor or jaundice. PERRLA. Oropharynx normal Respiratory: No chest deformity. No respiratory distress. Chest wall palpitation was unremarkable. Breath sounds were normal Cardiovascular: Heart sounds 1 and 2 normal with no murmurs. Abdominal: Not distended. Soft and nontender. Liver and spleen not palpable. No ascites demonstrated. Bowel sounds active. Rectal examination was deferred. Extremities: No edema Neurological: Alert and oriented x4. Grossly nonfocal. Normal speech Skin: No significant rash Psychological: Normal affect Results Laboratory Results: 01/09/18 10:45 01/09/18 10:45 01/08/18 01/08/18 01/09/18 18:00 22:45 10:45 WBC 7.8 RBC 4.09 Hgb 10.4 L Hct 31.4 L MCV 77 L MCH 25.3 L MCHC 33.1 RDW 16.1 H Plt Count 122 L Sodium Potassium Chloride Carbon Dioxide Anion Gap BUN Creatinine Est GFR ( Amer) Est GFR (Non-Af Amer) Glucose Lactic Acid 3.0 H 2.0 Calcium Total Bilirubin AST ALT Alkaline Phosphatase Total Protein Albumin 01/09/18 01/09/18 01/09/18 10:45 10:45 10:45 WBC RBC Hgb Hct MCV MCH MCHC RDW Plt Count Sodium 139.6 Potassium 3.7 Chloride 116 H Carbon Dioxide 14 L Anion Gap 10 BUN 22 H Creatinine 0.83 Est GFR ( Amer) > 60 Est GFR (Non-Af Amer) > 60 Glucose 125 H Lactic Acid Cancelled 2.4 H Calcium 8.1 L Total Bilirubin 0.4 AST 176 H ALT 42 Alkaline Phosphatase 132 H Total Protein 5.2 L Albumin 2.3 L 01/09/18 15:04 WBC RBC Hgb Hct MCV MCH MCHC RDW Plt Count Sodium Potassium Chloride Carbon Dioxide Anion Gap BUN Creatinine Est GFR ( Amer) Est GFR (Non-Af Amer) Glucose Lactic Acid 2.8 H Calcium Total Bilirubin AST ALT Alkaline Phosphatase Total Protein Albumin Impressions: Abdomen/Pelvis CT 01/06/18 00:00 IMPRESSION: 1. Dilation of the main pancreatic duct with pancreatic calcifications. There is minimal peripancreatic inflammatory change. These findings could be seen with acute on chronic pancreatitis. 2. Common bile duct stent with intrabiliary air identified. 3. Gallbladder is identified. 4. Nonobstructing right nephrolithiasis. This exam was performed according to our departmental dose-optimization program, which includes automated exposure control, adjustment of the mA and/or kV according to patient size and/or use of iterative reconstruction technique. Abdomen Ultrasound 01/06/18 20:11 IMPRESSION: Abnormal appearance of the pancreas, which is nonspecific. Inflammatory or neoplastic etiologies are possible. Dilated pancreatic duct. Dilated common duct containing a stent. TECHNIQUE: LIMITATIONS: None. FINDINGS: IMPRESSION: 2010 [employer]- All Rights Reserved Assessment & Plan - Diagnosis (1) Biliary tract disorder Plan: She has a history of biliary disease and has a persistent dilated CBD with a plastic stent that was placed 5 years ago. This would need to be removed. I suspect symptoms on admission with history of chills, bacteremia and elevated WBC is related to the old stent (2) Chronic pancreatitis Is this a current diagnosis for this admission?: Yes Plan: The etiology for her pancreatitis is unclear but it may be related to her complicated abdominal surgery. She does not drink alcohol. She also denies chronic abdomen pain. (4) Acute pancreatitis Qualifiers: Pancreatitis type: unspecified pancreatitis type Acute pancreatitis complication: unspecified Qualified Code(s): K85.90 - Acute pancreatitis without necrosis or infection, unspecified Is this a current diagnosis for this admission?: Yes Plan: She has acute on chronic pancreatitis probably related to the old stent. (5) Alkaline phosphatase elevation Is this a current diagnosis for this admission?: Yes
[2018-01-09] MEDS: DEXTROSE 5%-WATER 1000 ML 1,000 ML IV PRN (22:17)
[2018-01-10] MEDS: IMIPENEM/CILASTATIN SODIUM 500 MG in NORMAL SALINE 100 ML IV SCH (05:24)
[2018-01-10] MEDS: HEPARIN SOD (PORCINE) 5,000 UNIT/ML 1 ML SYRINGE SUBCUT SCH ×3 (05:28→23:39)
[2018-01-10 06:11] LABS: HEMATOCRIT 30.6 % (36.0-47.0); HEMOGLOBIN 10.1 g/dL (12.0-15.5); MEAN CORPUSCULAR HEMOGLOBIN 25.5 pg (27.0-33.4); MEAN CORPUSCULAR HGB CONC 33.1 g/dL (32.0-36.0); MEAN CORPUSCULAR VOLUME 77 fl (80-97); PLATELET COUNT 136 10^3/uL (150-450); RED BLOOD COUNT 3.97 10^6/uL (3.72-5.28); RED CELL DISTRIBUTION WIDTH 15.8 % (11.5-14.0); WHITE BLOOD COUNT 6.2 10^3/uL (4.0-10.5)
[2018-01-10 06:38] LABS: ALANINE AMINOTRANSFERASE 62 U/L (9-52); ALBUMIN 2.2 g/dL (3.5-5.0); ALKALINE PHOSPHATASE 115 U/L (38-126); ASPARTATE AMINO TRANSFERASE 292 U/L (14-36); BILIRUBIN,DIRECT 0.3 mg/dL (0.0-0.4); BILIRUBIN,TOTAL 0.3 mg/dL (0.2-1.3); BLOOD UREA NITROGEN 16 mg/dL (7-20); CALCIUM 8.5 mg/dL (8.4-10.2); CARBON DIOXIDE 21 mmol/L (22-30); CHLORIDE 112 mmol/L (98-107); GLUCOSE 94 mg/dL (75-110); POTASSIUM 3.9 mmol/L (3.6-5.0); SODIUM 136.6 mmol/L (137-145); TOTAL PROTEIN 4.9 g/dL (6.3-8.2)
[2018-01-10 06:40] LABS: ANION GAP 4 (5-19)
[2018-01-10] MEDS ORDERED: CEFTRIAXONE 1 GM/D5W RTU 1 GM/50 ML RTUPB IV SCH (10:00)
[2018-01-10] MEDS: CEFTRIAXONE SODIUM 1,000 MG in NORMAL SALINE 50 ML IV SCH (11:06)
--- NOTE | 2018-01-10 13:21 | PDOC PROGRESS REPORT ---
Subjective Progress Note for:: 01/10/18 Subjective:: Patient is feeling pretty well today. Her diarrhea has subsided considerably. She is not having chest pain or difficulty breathing. No abdominal pain. Her energy level is improved. She is making good urine. No obvious bleeding. Talk with Dr. Vega last night and is agreeable to ERCP. Reason For Visit: ACUTE PANCREATITIS Physical Exam Vital Signs: Temp Pulse Resp BP Pulse Ox 98.5 F 77 14 148/92 H 99 01/10/18 11:44 01/10/18 11:44 01/10/18 11:44 01/10/18 11:44 01/10/18 11:44 Intake & Output 01/09/18 01/10/18 01/11/18 06:59 06:59 06:59 Intake Total 3162 3169 50 Balance 3162 3169 50 Weight 39.2 kg 38.4 kg General appearance: PRESENT: no acute distress, cooperative, thin Head exam: PRESENT: atraumatic, normocephalic Eye exam: ABSENT: conjunctival injection, scleral icterus Mouth exam: PRESENT: moist, neck supple Respiratory exam: PRESENT: clear to auscultation les, unlabored. ABSENT: rales , rhonchi, wheezes Cardiovascular exam: PRESENT: RRR. ABSENT: systolic murmur Pulses: PRESENT: normal radial pulses GI/Abdominal exam: PRESENT: normal bowel sounds, soft. ABSENT: distended, guarding, tenderness Rectal exam: PRESENT: deferred Gentrourinary exam: ABSENT: indwelling catheter Extremities exam: PRESENT: other - Trace pedal edema, nonpitting Musculoskeletal exam: PRESENT: ambulatory. ABSENT: deformity Neurological exam: PRESENT: alert, awake, oriented to person, oriented to place , oriented to situation, CN II-XII grossly intact Psychiatric exam: PRESENT: anxious, appropriate affect Skin exam: PRESENT: dry, intact, warm Results Laboratory Results: 01/10/18 05:56 01/10/18 05:56 01/09/18 01/10/18 01/10/18 15:04 05:56 05:56 WBC RBC Hgb Hct MCV MCH MCHC RDW Plt Count Sodium 136.6 L Potassium 3.9 Chloride 112 H Carbon Dioxide 21 L Anion Gap 4 L BUN 16 Creatinine 0.78 Est GFR ( Amer) > 60 Est GFR (Non-Af Amer) > 60 Glucose 94 Lactic Acid 2.8 H 1.5 Calcium 8.5 Total Bilirubin 0.3 AST 292 H ALT 62 H Alkaline Phosphatase 115 Total Protein 4.9 L Albumin 2.2 L 01/10/18 05:56 WBC 6.2 RBC 3.97 Hgb 10.1 L Hct 30.6 L MCV 77 L MCH 25.5 L MCHC 33.1 RDW 15.8 H Plt Count 136 L Sodium Potassium Chloride Carbon Dioxide Anion Gap BUN Creatinine Est GFR ( Amer) Est GFR (Non-Af Amer) Glucose Lactic Acid Calcium Total Bilirubin AST ALT Alkaline Phosphatase Total Protein Albumin 01/07/18 06:10 Blood Blood Culture - Final Escherichia Coli Impressions: Abdomen/Pelvis CT 01/06/18 00:00 IMPRESSION: 1. Dilation of the main pancreatic duct with pancreatic calcifications. There is minimal peripancreatic inflammatory change. These findings could be seen with acute on chronic pancreatitis. 2. Common bile duct stent with intrabiliary air identified. 3. Gallbladder is identified. 4. Nonobstructing right nephrolithiasis. This exam was performed according to our departmental dose-optimization program, which includes automated exposure control, adjustment of the mA and/or kV according to patient size and/or use of iterative reconstruction technique. Abdomen Ultrasound 01/06/18 20:11 IMPRESSION: Abnormal appearance of the pancreas, which is nonspecific. Inflammatory or neoplastic etiologies are possible. Dilated pancreatic duct. Dilated common duct containing a stent. TECHNIQUE: LIMITATIONS: None. FINDINGS: IMPRESSION: 2010 [facility] All Rights Reserved Assessment & Plan - Diagnosis (1) E coli bacteremia Is this a current diagnosis for this admission?: Yes Plan: She is growing E. coli in her blood cultures. Pansensitive. I have discontinued her imipenem and started her on ceftriaxone 1 g IV daily and repeat blood cultures have been drawn. Etiology of the bacteremia may be infected, bile duct stent. No evidence of urinary tract infection no other obvious source of infection. Dr. Vega has seen the patient and will take her to OR tonight for ERCP to possibley have common bile duct stent removed. He has requested records from [facility], admission discharge op reports from a hospitalization about 5 years ago during which she believe she had the stent placed. I have passed that onto the community services officer into the patient's nurse. (2) Lactic acidosis Is this a current diagnosis for this admission?: Yes Plan: Likely related to bacteremia. With fluid resuscitation the lactic acid level has returned to normal. We will check again in the morning and we are continuing IV fluids. She is afebrile, white blood cell count normal, other vitals normal. (3) Acute renal failure Qualifiers: Acute renal failure type: unspecified Qualified Code(s): N17.9 - Acute kidney failure, unspecified Is this a current diagnosis for this admission?: Yes Plan: Improving with IV fluids. Urinalysis does not appear infected. Patient does not appear to have an obstruction. We will continue with IV fluids and follow renal function. (4) Nausea and vomiting Qualifiers: Vomiting type: unspecified Vomiting Intractability: non-intractable Qualified Code(s): R11.2 - Nausea with vomiting, unspecified Is this a current diagnosis for this admission?: Yes Plan: Resolved. Patient also had some diarrhea which is much improved. Continue IV fluids until patient is eating and drinking well. (5) Hypoglycemia Is this a current diagnosis for this admission?: Yes
[2018-01-10] MEDS ORDERED: PROPOFOL INJ 200 MG/20 ML VIAL IV ONE (17:54)
[2018-01-10] MEDS ORDERED: MEPERIDINE HCL/PF INJ 25 MG/1 ML DISP.SYRIN IV PRN (17:59)
[2018-01-10] MEDS ORDERED: DIPHENHYDRAMINE HCL 50 MG/ML VIAL IV PRN (17:59)
[2018-01-10] MEDS ORDERED: MORPHINE SULFATE 10 MG/ML INJ IV PRN (17:59)
[2018-01-10] MEDS ORDERED: FENTANYL CITRATE INJ/PF 100 MCG/2 ML AMPUL IV PRN ×2 (17:59)
--- NOTE | 2018-01-10 20:36 | OPERATIVE REPORT E ---
Operative Report NAME: JESSY VAIL : 1965 AGE: 52Y DATE OF SURGERY: 01/10/2018 ROOM: 414 PREOPERATIVE DIAGNOSES: SEPSIS, ABNORMAL LFTS, AND BILIARY STENTS PLACED 5 YEARS AGO. POSTOPERATIVE DIAGNOSES: 1. GASTROJEJUNAL ANASTOMOTIC ULCER. 2. DISTAL ESOPHAGITIS, RULE OUT CANDIDIASIS. 3. HISTORY OF SUBTOTAL GASTRECTOMY WITH KURT-EN-Y GASTROJEJUNAL ANASTOMOSIS. OPERATION: EGD with enteroscopy and biopsy. SURGEON: TIFFANY ROSARIO M.D. MEDICATION: As per Anesthesia. TISSUE REMOVED OR ALTERED: Anastomotic biopsy and distal esophageal biopsy. PROCEDURE: After informed consent obtained from patient, she was placed under sedation with propofol. The pediatric colonoscope was then inserted into the esophagus and under direct vision, advanced into the stomach. Patient has maybe 25% to 33% of her stomach left. There was a near-circumferential anastomotic ulcer with edema. The ulcer extended into the gastric remnant. There was no evidence for recent bleeding. The endoscope was then inserted into the jejunum. The Kurt-en-Y anastomosis was noted at about 60 to 70 cm, and I was able to examine the limb to at least 80 cm. There was bile noted in the limb, but no ampulla or biliary anastomosis was identified. The endoscope was pulled back and I reinserted the scope back into the small bowel loop. Again, no stent or biliary anastomosis was identified. The endoscope was then pulled out of the patient. Biopsy was taken from the anastomotic ulcer and also from the distal esophagus. She had yellowish-whitish exudate noted in the distal 5 to 7 cm of the esophagus, suggestive of candidiasis. She tolerated the procedure well. PLAN: She will follow up with her surgeon in [place]. I reviewed her previous surgery performed in February 2013 just before this procedure was started. She had surgery by Dr. Ramesh Singletary for persistent anastomotic ulcer with outlet obstruction, status post partial gastrectomy. On 02/28/2013, she had laparotomy, resection of gastroduodenostomy, Kurt-en-Y biliary pancreatic drainage and gastrojejunostomy. She also had a cholecystectomy at the same time. The operative note describes 2 Hemovac drains inserted into the biliary and pancreatic ducts, but no other stents were described. She did have a Gastrografin upper GI performed on 03/07/2013 that showed no evidence of a leak, with a biliary drainage catheter noted in the right upper quadrant and 2 other catheters noted in the left upper and lower quadrants. DICTATING PHYSICIAN: TIFFANY ROSARIO M.D. [id number] PHY#: [id number] ID: [id number] JOB#: [id number] ACCT: [id number] cc:TIFFANY ROSARIO M.D. >
[2018-01-10] MEDS: HYDRALAZINE HCL INJ/PF 20 MG/1 ML SDV IV PRN (23:47)
[2018-01-11] MEDS: HEPARIN SOD (PORCINE) 5,000 UNIT/ML 1 ML SYRINGE SUBCUT SCH ×3 (06:08→22:55)
[2018-01-11] MEDS: DEXTROSE 5%-WATER 1000 ML 1,000 ML IV PRN (06:08)
[2018-01-11 06:20] LABS: HEMATOCRIT 28.7 % (36.0-47.0); HEMOGLOBIN 9.6 g/dL (12.0-15.5); MEAN CORPUSCULAR HEMOGLOBIN 25.9 pg (27.0-33.4); MEAN CORPUSCULAR HGB CONC 33.5 g/dL (32.0-36.0); MEAN CORPUSCULAR VOLUME 77 fl (80-97); PLATELET COUNT 162 10^3/uL (150-450); RED BLOOD COUNT 3.72 10^6/uL (3.72-5.28); RED CELL DISTRIBUTION WIDTH 15.6 % (11.5-14.0); WHITE BLOOD COUNT 5.9 10^3/uL (4.0-10.5)
[2018-01-11 06:47] LABS: ALANINE AMINOTRANSFERASE 93 U/L (9-52); ALBUMIN 2.2 g/dL (3.5-5.0); ALKALINE PHOSPHATASE 102 U/L (38-126); ANION GAP 5 (5-19); ASPARTATE AMINO TRANSFERASE 454 U/L (14-36); BILIRUBIN,DIRECT 0.3 mg/dL (0.0-0.4); BILIRUBIN,TOTAL 0.3 mg/dL (0.2-1.3); BLOOD UREA NITROGEN 10 mg/dL (7-20); CALCIUM 8.6 mg/dL (8.4-10.2); CARBON DIOXIDE 23 mmol/L (22-30); CHLORIDE 109 mmol/L (98-107); GLUCOSE 98 mg/dL (75-110); POTASSIUM 3.9 mmol/L (3.6-5.0); SODIUM 137.1 mmol/L (137-145); TOTAL PROTEIN 4.7 g/dL (6.3-8.2)
[2018-01-11] MEDS: CEFTRIAXONE SODIUM 1,000 MG in NORMAL SALINE 50 ML IV SCH (11:25)
[2018-01-11] MEDS: HYDRALAZINE HCL INJ/PF 20 MG/1 ML SDV IV PRN (11:31)
--- NOTE | 2018-01-11 15:08 | PDOC PROGRESS REPORT ---
Subjective Progress Note for:: 01/11/18 Subjective:: 52-year-old -[place] female with E. coli bacteremia presumably secondary to biliary stent placed 5 years ago when she had abdominal surgery. Patient has a resolving acute on chronic pancreatitis. She underwent ERCP and removal of the stent last evening. Tolerated the procedure well she is afebrile white count now normal. E. coli pansensitive and subsequent blood cultures negative. Patient would like to be discharged Reason For Visit: ACUTE PANCREATITIS Physical Exam Vital Signs: Temp Pulse Resp BP Pulse Ox 98.8 F 81 14 166/87 H 100 01/11/18 11:06 01/11/18 11:06 01/11/18 11:06 01/11/18 11:06 01/11/18 11:06 Intake & Output 01/10/18 01/11/18 01/12/18 06:59 06:59 06:59 Intake Total 3169 1466 Balance 3169 1466 Weight 38.4 kg 40.4 kg General appearance: PRESENT: no acute distress, well-developed, well-nourished Eye exam: PRESENT: conjunctiva pink, EOMI, PERRLA. ABSENT: scleral icterus Neck exam: ABSENT: carotid bruit, JVD, lymphadenopathy, thyromegaly Respiratory exam: PRESENT: clear to auscultation les. ABSENT: rales, rhonchi, wheezes Cardiovascular exam: PRESENT: RRR. ABSENT: diastolic murmur, rubs, systolic murmur GI/Abdominal exam: PRESENT: normal bowel sounds, soft, tenderness - Epigastric minimal. ABSENT: distended, guarding, mass, organolmegaly, rebound Extremities exam: PRESENT: full ROM. ABSENT: calf tenderness, clubbing, pedal edema Results Laboratory Results: 01/11/18 05:57 01/11/18 05:57 01/11/18 01/11/18 01/11/18 05:57 05:57 05:57 WBC 5.9 RBC 3.72 Hgb 9.6 L Hct 28.7 L MCV 77 L MCH 25.9 L MCHC 33.5 RDW 15.6 H Plt Count 162 Sodium 137.1 Potassium 3.9 Chloride 109 H Carbon Dioxide 23 Anion Gap 5 BUN 10 Creatinine 0.62 Est GFR ( Amer) > 60 Est GFR (Non-Af Amer) > 60 Glucose 98 Lactic Acid 1.8 Calcium 8.6 Total Bilirubin 0.3 AST 454 H ALT 93 H Alkaline Phosphatase 102 Total Protein 4.7 L Albumin 2.2 L Impressions: Abdomen/Pelvis CT 01/06/18 00:00 IMPRESSION: 1. Dilation of the main pancreatic duct with pancreatic calcifications. There is minimal peripancreatic inflammatory change. These findings could be seen with acute on chronic pancreatitis. 2. Common bile duct stent with intrabiliary air identified. 3. Gallbladder is identified. 4. Nonobstructing right nephrolithiasis. This exam was performed according to our departmental dose-optimization program, which includes automated exposure control, adjustment of the mA and/or kV according to patient size and/or use of iterative reconstruction technique. Abdomen Ultrasound 01/06/18 20:11 IMPRESSION: Abnormal appearance of the pancreas, which is nonspecific. Inflammatory or neoplastic etiologies are possible. Dilated pancreatic duct. Dilated common duct containing a stent. TECHNIQUE: LIMITATIONS: None. FINDINGS: IMPRESSION: 2010 [employer]- All Rights Reserved Assessment & Plan - Diagnosis (1) Acute on chronic pancreatitis Is this a current diagnosis for this admission?: Yes Plan: Anticipate discharge in the next 24 hours check lipase. Initiate fenofibrate as patient's triglyceride is greater than 700 (3) E coli bacteremia Is this a current diagnosis for this admission?: Yes Plan: Request infectious disease input on duration of therapy and if patient can safely be transitioned to p.o. as her blood cultures are negative subsequent to the initial E. coli bacteremia. The biliary stent has been removed (4) Hypertriglyceridemia Is this a current diagnosis for this admission?: Yes Plan: And TriCor 145 daily (5) Hyperlipidemia Is this a current diagnosis for this admission?: Yes Plan: Patient on Zetia will not initiate statin will check response in the outpatient setting to TriCor and Zetia. - Time Time Spent with patient: 25-34 minutes Anticipated discharge: Home Within: within 24 hours - If patient can be transitioned to p.o. based on infectious disease input.
[2018-01-12 05:35] LABS: ALANINE AMINOTRANSFERASE 114 U/L (9-52); ALBUMIN 2.2 g/dL (3.5-5.0); ALKALINE PHOSPHATASE 100 U/L (38-126); ANION GAP 6 (5-19); ASPARTATE AMINO TRANSFERASE 523 U/L (14-36); BILIRUBIN,DIRECT 0.2 mg/dL (0.0-0.4); BILIRUBIN,TOTAL 0.2 mg/dL (0.2-1.3); BLOOD UREA NITROGEN 7 mg/dL (7-20); CALCIUM 8.8 mg/dL (8.4-10.2); CARBON DIOXIDE 26 mmol/L (22-30); CHLORIDE 107 mmol/L (98-107); GLUCOSE 80 mg/dL (75-110); LIPASE 123.6 U/L (23-300); POTASSIUM 4.1 mmol/L (3.6-5.0); SODIUM 139.1 mmol/L (137-145); TOTAL PROTEIN 4.7 g/dL (6.3-8.2)
[2018-01-12] MEDS: HEPARIN SOD (PORCINE) 5,000 UNIT/ML 1 ML SYRINGE SUBCUT SCH ×2 (06:15→13:16)
[2018-01-12] MEDS ORDERED: FENOFIBRATE NANOCRYSTALLIZED 145 MG TABLET PO SCH (10:00)
[2018-01-12] MEDS ORDERED: CEFTRIAXONE SODIUM 1,000 MG in DEXTROSE 5%-WATER 50 ML IV SCH (10:00)
--- NOTE | 2018-01-12 14:15 | PDOC DISCHARGE SUMMARY ---
General - Admit/Disc Date/PCP Admission Date/Primary Care Provider: 01/06/18 23:46 Discharge Date: 01/12/18 - Discharge Diagnosis (1) Acute on chronic pancreatitis Is this a current diagnosis for this admission?: Yes (3) E coli bacteremia Is this a current diagnosis for this admission?: Yes (4) Hypertriglyceridemia Is this a current diagnosis for this admission?: Yes (5) Hyperlipidemia Is this a current diagnosis for this admission?: Yes - Additional Information Resuscitation Status: Full Code Discharge Diet: As Tolerated Discharge Activity: Activity As Tolerated Prescriptions: Fenofibrate Nanocrystallized [Tricor 145 mg Tablet] 145 mg PO DAILY #30 tablet Sulfamethoxazole/Trimethoprim [Bactrim Ds Tablet] 1 each PO BID #14 tablet Home Medications: Cetirizine HCl [Zyrtec 10 mg Tablet] 10 mg PO DAILY 01/07/18 Esomeprazole Magnesium [Nexium] 40 mg PO DAILY 01/07/18 Ferrous Sulfate [Feosol 325 mg Tablet] 325 mg PO TID 01/07/18 Fenofibrate Nanocrystallized [Tricor 145 mg Tablet] 145 mg PO DAILY #30 tablet 01/12/18 Sulfamethoxazole/Trimethoprim [Bactrim Ds Tablet] 1 each PO BID #14 tablet 01/12 History of Present Illness History of Present Illness: JESSY VAIL is a 52 year old female who comes to the emergency department complaining of persistent nausea and vomiting for 1 day, associated with lower back pain, dull in nature, 7/10 intensity, she denies any abdominal pain, fever , chills, shortness of breath, chest pain, diarrhea, cough, urinary symptoms, wheezing. The patient has been feeling very weak and has decreased her fluid intake and p.o. intake in general. 2 nights ago she had shaking chills. Patient tells me that she has history of ulcer she does not know was a stomach or duodenum but something went wrong with her first surgery and she had a second surgery where she had a partial small bowel resection and I stent had to be placed in her bile duct, she does not know exactly the diagnosis or what happened during surgery. Abnormal laboratories in the emergency department with white blood cells 20 2.8K with left shift, acute renal failure, lipase 1599. Hospital Course Hospital Course: She was admitted to the medical floor and blood cultures obtained at the time of admission grew E. coli in 1 bottle. Her lipase was 1500 she was made n.p.o. and a consultation with Dr. Carcamo. Patient had surgery approximately 5 years ago and a biliary stent was placed at that time. A CT of the abdomen done at the time of admission showed acute and chronic pancreatic imaging. Because of the E. coli bacteremia and the lactic acidosis was recommended that the stent be removed. The patient was taken to the endoscopy suite and the stent was removed without complication. A telephone consultation with infectious disease was obtained regarding duration of treatment. As patient was on Rocephin and the E. coli was pansensitive and subsequent cultures on 09 January were negative it was felt that an additional 7 days of Bactrim should be adequate coverage. Patient was therefore discharged. Physical Exam Vital Signs: Temp Pulse Resp BP Pulse Ox 98.9 F 72 16 161/79 H 100 01/12/18 11:03 01/12/18 11:03 01/12/18 11:03 01/12/18 11:03 01/12/18 11:03 Intake & Output 01/11/18 01/12/18 01/13/18 06:59 06:59 06:59 Intake Total 1466 2734 Balance 1466 2734 Weight 40.4 kg 42 kg General appearance: PRESENT: no acute distress, well-developed, well-nourished Eye exam: PRESENT: conjunctiva pink, EOMI, PERRLA. ABSENT: scleral icterus Neck exam: ABSENT: carotid bruit, JVD, lymphadenopathy, thyromegaly Respiratory exam: PRESENT: clear to auscultation les. ABSENT: rales, rhonchi, wheezes Cardiovascular exam: PRESENT: RRR. ABSENT: diastolic murmur, rubs, systolic murmur GI/Abdominal exam: PRESENT: normal bowel sounds, soft. ABSENT: distended, guarding, mass, organolmegaly, rebound, tenderness Extremities exam: PRESENT: full ROM. ABSENT: calf tenderness, clubbing, pedal edema Results Laboratory Results: 01/11/18 05:57 01/12/18 05:02 01/12/18 05:02 Sodium 139.1 Potassium 4.1 Chloride 107 Carbon Dioxide 26 Anion Gap 6 BUN 7 Creatinine 0.67 Est GFR ( Amer) > 60 Est GFR (Non-Af Amer) > 60 Glucose 80 Calcium 8.8 Total Bilirubin 0.2 AST 523 H ALT 114 H Alkaline Phosphatase 100 Total Protein 4.7 L Albumin 2.2 L Lipase 123.6 01/07/18 00:35 Blood Blood Culture - Final NO GROWTH IN 5 DAYS Impressions: Abdomen/Pelvis CT 01/06/18 00:00 IMPRESSION: 1. Dilation of the main pancreatic duct with pancreatic calcifications. There is minimal peripancreatic inflammatory change. These findings could be seen with acute on chronic pancreatitis. 2. Common bile duct stent with intrabiliary air identified. 3. Gallbladder is identified. 4. Nonobstructing right nephrolithiasis. This exam was performed according to our departmental dose-optimization program, which includes automated exposure control, adjustment of the mA and/or kV according to patient size and/or use of iterative reconstruction technique. Abdomen Ultrasound 01/06/18 20:11 IMPRESSION: Abnormal appearance of the pancreas, which is nonspecific. Inflammatory or neoplastic etiologies are possible. Dilated pancreatic duct. Dilated common duct containing a stent. TECHNIQUE: LIMITATIONS: None. FINDINGS: IMPRESSION: 2010 [employer]- All Rights Reserved Qualifiers - * PATIENT BEING DISCHARGED WITH ANY OF THE FOLLOWING DIAGNOSIS: No Plan Time Spent: Greater than 30 Minutes
[2018-01-12 14:28] VITALS: BP 152/90
--- NOTE | 2018-01-12 21:53 | Progress Note ---
Provider Note Provider Note: ID Consult Note Asked to review patient's chart on 01/11/18 and discussed case briefly via telephone with Dr Montiel on 01/12 earlier this afternoon. Pt not seen or examined. Ms Baxter is a 52 year old woman who presented on 01/07/18 with persistent N&V x 1 day, generalized weakness, decreased PO intaKe and no associated abdominal pain, fever, chills, or urinary symptoms. She reported PMH/PSH of an ulcer involving either stomach or small bowel and need for a complex surgery at [place] about 5 years ago. Pt was tachycardic but afebrile on presentation. No remarkable exam findings at the time of hospital admission. However, lab abnormalities included leukocytosis WBC 22.8, FANG with SCr 1.7, elevated alkaline phosphatase 297, lipase 1599, triglycerides of 700. U/S and CT abdomen performed. Noted to have dilation of the main pancreatic duct with pancreatic calcifications, minimal peripancreatic inflammatory change, dilated CBD with stent and intrabiliary air. Pt admitted for management of acute on chronic pancreatitis. Imipenem empirically was started, then de-escalated to Rocephin based on results of BCx drawn on admission, which grew a lopez-susceptible E coli in 1 bottle of 4. Pt was suspected to have E coli bacteremia due to infected retained biliary stent. GI was consulted as pt was anticipated to need ERCP for stent removal. A draft of the GI procedure note from Dr Fulton is available in the EHR for EGD with enteroscopy; bile was noted noted in one limb of the Ric- en-Y but no stent or biliary anastomosis identified, and he plans for the patient to follow up with her surgeon in [place]. Per telephone call with Dr Montiel earlier this afternoon, his understanding is that the biliary stent was removed. Pt tolerated procedure well and wants to go home. Pt has already received 6 days of effective IV antibiotics (imipenem -> Rocephin ) at this point. She has no allergies. She continues to be afebrile, and her repeat BCx from 01/09 have no growth to date. The patient should be able to switch to PO Bactrim 1 DS BID, which has excellent PO bioavailability to complete treatment. If adequate source control has been achieved, Bactrim can be stopped after 7 days. Tate Almanzar MD [facility] Infectious Diseases pager [phone]
== END 2018-01-12 16:05 | disposition home or self-care (01) | DRG 439 ==
LOC: ER 14:10 → EH 23:46 → 4N 01-07 20:11
PROVIDERS: ADMIT Internal Medicine; ATTEND Internal Medicine
PROC: 0DD68ZX Extraction of Stomach, Via Natural or Artificial Opening Endoscopic, Diagnostic (ICD-10-PCS; 2018-01-10)
PROC: 0DD38ZX Extraction of Lower Esophagus, Via Natural or Artificial Opening Endoscopic, Diagnostic (ICD-10-PCS; principal; 2018-01-10 18:00)
DX: K85.90 Acute pancreatitis without necrosis or infection, unspecified (principal); N17.9 Acute kidney failure, unspecified; E87.2 Acidosis; R78.81 Bacteremia; K28.9 Gastrojejunal ulcer, unspecified as acute or chronic, without hemorrhage or perforation; K86.1 Other chronic pancreatitis; K83.8 Other specified diseases of biliary tract; E78.1 Pure hyperglyceridemia; E16.2 Hypoglycemia, unspecified; R74.8 Abnormal levels of other serum enzymes; B96.20 Unspecified Escherichia coli [E. coli] as the cause of diseases classified elsewhere; F17.210 Nicotine dependence, cigarettes, uncomplicated; Z98.84 Bariatric surgery status
CPT/HCPCS: 36415; 43239; 731; 74176; 76705; 80048; 80053; 80061; 80076; 80307; 81001; 82330; 82962; 83605; 83690; 83735; 84100; 85025; 85027; 87040; 87077; 87186; 88305; 88312; 88313; 96361; 96374; 96375; 99285; J0360; J0696; J0743; J1644; J1885; J2405; J2704; J3490; S0164